=== PATIENT | female | born 1965 | race Caucasian/White ===

== ENCOUNTER 2021-12-04 12:03 | Observation (INO) | payer BC ==
[~2021-12-04] VITALS: Ht 170.2 cm; Wt 83.5 kg
[2021-12-04 13:25] LABS: HEMOGLOBIN 15.9 gm/dl (12.3-15.3); RED BLOOD COUNT 5.32 M/UL (4.00-5.10); WHITE BLOOD COUNT 7.4 K/UL (4.5-11.0)
[2021-12-04 13:49] LABS: BUN/CREATININE RATIO 33 (0-10)
[2021-12-04] MEDS ORDERED: CLOPIDOGREL75 MG PO (16:34)
[2021-12-04] MEDS ORDERED: SYNJARDY XR 101 EACH PO (16:34)
[2021-12-04] MEDS ORDERED: BASAGLAR K100 UNIT/1 SQ (16:35)
[2021-12-04] MEDS ORDERED: LISINOPRIL-HCT1 EACH PO (16:35)
[2021-12-04] MEDS ORDERED: NEURONTIN400 MG PO (16:35)
[2021-12-04] MEDS ORDERED: PROMETHAZINE-D473 M1 PO (16:36)
[2021-12-04] MEDS ORDERED: CRESTOR10 MG PO (16:36)
[2021-12-04] MEDS ORDERED: PROAIR HFA8.5 GM INH (16:36)
[2021-12-04] MEDS ORDERED: OZEMPIC0.25 MG/0. SQ (16:37)
[2021-12-04] MEDS ORDERED: TRAMADOL HCL50 MG PO (16:37)
[2021-12-04] MEDS ORDERED: ASPIRIN EC81 MG PO (16:38)
[2021-12-05 00:57] LABS: HEMOGLOBIN 14.6 gm/dl (12.3-15.3); RED BLOOD COUNT 4.92 M/UL (4.00-5.10); WHITE BLOOD COUNT 8.6 K/UL (4.5-11.0)
[2021-12-05 01:21] LABS: BUN/CREATININE RATIO 32 (0-10)
[2021-12-06 02:45] LABS: HEMOGLOBIN 14.8 gm/dl (12.3-15.3); RED BLOOD COUNT 5.08 M/UL (4.00-5.10); WHITE BLOOD COUNT 8.4 K/UL (4.5-11.0)
[2021-12-06 03:50] LABS: BUN/CREATININE RATIO 19 (0-10)
[2021-12-06] MEDS ORDERED: LOPRESSOR 25 MG25 MG PO (16:18)
[2021-12-06] MEDS ORDERED: NITROGLYCERIN0.4 MG SL (16:18)
[2021-12-06] MEDS ORDERED: LISINOPRIL10 MG PO (16:18)
== END 2021-12-06 17:06 | disposition home or self-care (01) ==
LOC: ER1 12:03 → CDU 16:10 → CCU 18:18 → PROG CARE 12-05 21:17
PROVIDERS: Internal Medicine Cardiovascular Disease; Physician Assistant; Physician Assistant Medical; ADMIT Internal Medicine
DX: I25.110 Atherosclerotic heart disease of native coronary artery with unstable angina pectoris (principal); T82.855A Stenosis of coronary artery stent, initial encounter; E11.9 Type 2 diabetes mellitus without complications; I10 Essential (primary) hypertension; E78.5 Hyperlipidemia, unspecified; E87.1 Hypo-osmolality and hyponatremia; Z87.891 Personal history of nicotine dependence; Z95.5 Presence of coronary angioplasty implant and graft; Z88.5 Allergy status to narcotic agent; Z79.82 Long term (current) use of aspirin; Z79.4 Long term (current) use of insulin; Z79.02 Long term (current) use of antithrombotics/antiplatelets; Z20.822 Contact with and (suspected) exposure to COVID-19
CPT/HCPCS: ECHO; 36415; 71045; 80048; 80053; 80061; 82550; 82553; 82962; 83735; 83874; 83880; 84484; 85025; 85347; 85610; 92978; 93005; 93306; 96374; 96375; 99152; 99153; 99285; C1725; C1753; C1769; C1874; C1887; C1894; C9113; C9600; G0378; J1170; J1644; J1650; J2250; J2270; J2405; J2550; J3010; J7040; Q9967; U0002

== ENCOUNTER 2021-12-07 16:12 | Inpatient (IN) | payer BC ==
[~2021-12-07] VITALS: Ht 170.2 cm; Wt 86.2 kg
[~2021-12-07 16:12] MED LIST: ASPIRIN EC81 MG PO; BASAGLAR K100 UNIT/1 SQ; CLOPIDOGREL75 MG PO; CRESTOR10 MG PO; LISINOPRIL-HCT1 EACH PO; LISINOPRIL10 MG PO; LOPRESSOR 25 MG25 MG PO; NEURONTIN400 MG PO; NITROGLYCERIN0.4 MG SL; OZEMPIC0.25 MG/0. SQ; PROAIR HFA8.5 GM INH; PROMETHAZINE-D473 M1 PO; SYNJARDY XR 101 EACH PO; TRAMADOL HCL50 MG PO
[2021-12-07 17:48] LABS: HEMOGLOBIN 16.7 gm/dl (12.3-15.3)
[2021-12-07 17:51] LABS: WHITE BLOOD COUNT 10.8 K/UL (4.5-11.0)
[2021-12-07 17:52] LABS: RED BLOOD COUNT 5.62 M/UL (4.00-5.10)
[2021-12-07 18:41] LABS: BUN/CREATININE RATIO 18 (0-10)
[2021-12-08 03:08] LABS: WHITE BLOOD COUNT 8.8 K/UL (4.5-11.0)
[2021-12-08 03:10] LABS: HEMOGLOBIN 14.2 gm/dl (12.3-15.3); RED BLOOD COUNT 4.79 M/UL (4.00-5.10)
[2021-12-08 03:50] LABS: BUN/CREATININE RATIO 23 (0-10)
[2021-12-08 08:02] LABS: BUN/CREATININE RATIO 14 (0-10)
[2021-12-08] MEDS ORDERED: LOPRESSOR 25 MG25 MG PO (09:48)
[2021-12-08 11:12] LABS: BUN/CREATININE RATIO 15 (0-10)
== END 2021-12-08 17:45 | disposition home or self-care (01) | DRG 638 ==
LOC: ER1 16:12 → CCU 22:08 → CDU 22:08 → CCU 12-08 05:28
PROVIDERS: Physician Assistant; ADMIT Internal Medicine
DX: E11.10 Type 2 diabetes mellitus with ketoacidosis without coma (principal); E87.1 Hypo-osmolality and hyponatremia; I25.10 Atherosclerotic heart disease of native coronary artery without angina pectoris; E87.6 Hypokalemia; Z20.822 Contact with and (suspected) exposure to COVID-19; F17.210 Nicotine dependence, cigarettes, uncomplicated; E78.5 Hyperlipidemia, unspecified; I12.9 Hypertensive chronic kidney disease with stage 1 through stage 4 chronic kidney disease, or unspecified chronic kidney disease; E11.40 Type 2 diabetes mellitus with diabetic neuropathy, unspecified; Z95.5 Presence of coronary angioplasty implant and graft; Z79.01 Long term (current) use of anticoagulants; Z79.82 Long term (current) use of aspirin; Z98.891 History of uterine scar from previous surgery; Z90.49 Acquired absence of other specified parts of digestive tract; Z88.6 Allergy status to analgesic agent; Z82.49 Family history of ischemic heart disease and other diseases of the circulatory system; Z83.3 Family history of diabetes mellitus; Z84.89 Family history of other specified conditions; Z80.6 Family history of leukemia
CPT/HCPCS: 36415; 36600; 71045; 80048; 80053; 81001; 82009; 82550; 82553; 82803; 82962; 83605; 83880; 84484; 85025; 85379; 87086; 93005; 96374; 96375; 99285; C9113; J1650; J2405; J7030; Q9967; U0002

== ENCOUNTER 2022-02-18 12:03 | Inpatient (IN) | payer BC ==
[~2022-02-18] VITALS: Ht 170.2 cm; Wt 82.1 kg
[~2022-02-18 12:03] MED LIST changes: -NEURONTIN400 MG PO; +NEURONTIN600 MG PO
[2022-02-18 13:22] LABS: HEMOGLOBIN 16.3 gm/dl (12.3-15.3); RED BLOOD COUNT 5.26 M/UL (4.00-5.10); WHITE BLOOD COUNT 11.2 K/UL (4.5-11.0)
[2022-02-18 13:38] LABS: BUN/CREATININE RATIO 42 (0-10)
[2022-02-18] MEDS ORDERED: LISINOPRIL-HCT1 EACH PO (17:28)
[2022-02-18] MEDS ORDERED: DULOXETINE HCL30 MG PO (17:31)
[2022-02-18] MEDS ORDERED: SYNJARDY XR 101 EACH PO (17:32)
[2022-02-18] MEDS ORDERED: ASMANEX HFA13 G2 (17:33)
[2022-02-18] MEDS ORDERED: MONTELUKAST SOD10 MG PO (17:33)
[2022-02-18] MEDS ORDERED: PROMETHAZINE HC25 M1 PO (17:35)
[2022-02-19 00:13] LABS: BUN/CREATININE RATIO 38 (0-10)
[2022-02-19 05:11] LABS: HEMOGLOBIN 13.6 gm/dl (12.3-15.3); RED BLOOD COUNT 4.45 M/UL (4.00-5.10)
[2022-02-19 05:55] LABS: BUN/CREATININE RATIO 43 (0-10)
[2022-02-19 09:49] LABS: BUN/CREATININE RATIO 34 (0-10)
[2022-02-19 17:16] LABS: BUN/CREATININE RATIO 23 (0-10)
[2022-02-19 21:30] LABS: BUN/CREATININE RATIO 20 (0-10)
[2022-02-20 01:43] LABS: BUN/CREATININE RATIO 18 (0-10)
[2022-02-20 05:40] LABS: BUN/CREATININE RATIO 19 (0-10)
[2022-02-20 08:56] LABS: BUN/CREATININE RATIO 20 (0-10)
[2022-02-20 10:37] LABS: BUN/CREATININE RATIO 23 (0-10)
[2022-02-20] MEDS ORDERED: METFORMIN HCL1000 M1 PO (12:04)
[2022-02-20] MEDS ORDERED: LISINOPRIL10 MG PO (12:04)
== END 2022-02-20 13:37 | disposition home or self-care (01) | DRG 638 ==
LOC: ER1 12:03 → CCU 15:39 → CDU 15:39 → CCU 18:28
PROVIDERS: Internal Medicine; Physician Assistant; ADMIT Internal Medicine
DX: E11.10 Type 2 diabetes mellitus with ketoacidosis without coma (principal); E87.1 Hypo-osmolality and hyponatremia; Z20.822 Contact with and (suspected) exposure to COVID-19; I25.10 Atherosclerotic heart disease of native coronary artery without angina pectoris; E78.5 Hyperlipidemia, unspecified; E86.0 Dehydration; E87.6 Hypokalemia; E83.42 Hypomagnesemia; G89.29 Other chronic pain; I10 Essential (primary) hypertension; Z95.5 Presence of coronary angioplasty implant and graft; Z98.891 History of uterine scar from previous surgery; Z90.49 Acquired absence of other specified parts of digestive tract; Z88.8 Allergy status to other drugs, medicaments and biological substances; Z87.891 Personal history of nicotine dependence; Z83.3 Family history of diabetes mellitus; Z82.49 Family history of ischemic heart disease and other diseases of the circulatory system
CPT/HCPCS: 36415; 71045; 80048; 80053; 81001; 82009; 82550; 82553; 82803; 82962; 83036; 83735; 84100; 84484; 85025; 93005; 94640; 94664; 96374; 99285; J1650; J2405; U0002

== ENCOUNTER → 2022-04-12 | Outpatient (CLI) | payer BC ==
[~2022-04-12] MED LIST changes: +ASMANEX HFA13 G2; +DULOXETINE HCL30 MG PO; +METFORMIN HCL1000 M1 PO; +MONTELUKAST SOD10 MG PO; +PROMETHAZINE HC25 M1 PO
== END ==
LOC: KOH-I 09:37
DX: M54.50 Low back pain, unspecified (principal); G62.9 Polyneuropathy, unspecified; M51.36 Other intervertebral disc degeneration, lumbar region
CPT/HCPCS: 72148